=== PATIENT | female | born 2000 | race Caucasian/White ===

== ENCOUNTER 2021-06-29 18:29 | Emergency (ER) | payer OTHER ==
--- NOTE | 2021-06-29 18:37 | EDM.PDOC ---
ED HPI GENERAL MEDICAL PROBLEM - General Chief Complaint: Neurological Problem Stated Complaint: TROUBLE BREATHING, PASSED OUT Time Seen by Provider: 06/29/21 18:35 Source of Information: Reports: Patient, Family History Limitations: Reports: Altered Mental Status - History of Present Illness INITIAL COMMENTS - FREE TEXT/NARRATIVE: Alexa a 21-year-old female presenting to the ED for evaluation of difficulty breathing, delirium, and altered mental state. Patient was accompanying her father to look at [employer] in the area today and started to complain that she couldn't breathe. Her father said that she was gasping in the front seat. The patient requested that he call 911 to get brought into the hospital. Patient's father drove her immediately to the hospital. The patient has been exhibiting bizarre behavior between episodes of giddiness with inappropriate laughing followed by unresponsiveness followed by episodes that appear to be sure to her. These each last about 20 to 30 seconds. She denies any drug use, alcohol, or prescription drug use. She does have a history for passing out multiple times with the most recent being a week ago when she was in [place]. The patient reportedly took a couple hits of marijuana and was not feeling well and was going into a [employer] to get something to eat or drink when she had an episode and apparently fell striking her head on a pole. She has had a spotty headache since then but denies any vision changes, numbness or tingling, or problems with concentration or comprehension. Mom reports that the patient is just getting over a viral infection of some type and has not been sleeping well due to nausea over the last couple of nights. Patient does not have a fever or complain of chills. When she is alert she has no complaints. She denies any headache currently. She has been drinking water generously all day. - Related Data Allergies Allergy/AdvReac Type Severity Reaction Status Date / Time Penicillins Allergy Hives Verified 06/29/21 18:37 Home Meds: Home Meds NK [No Known Home Meds] 06/29/21 [History] ED ROS GENERAL - Review of Systems Review Of Systems: See Below Reason Not Obtained: Review of systems is limited due to the patient's altered mental Constitutional: Reports: Decreased Appetite HEENT: Reports: No Symptoms Respiratory: Reports: Shortness of Breath (Episodes of shortness of breath where the patient felt like she couldn't catch her breath. Dad states that she was not hyperventilating at the time. The shortness of breath resulted in her passin g out.) Cardiovascular: Reports: No Symptoms Endocrine: Reports: No Symptoms GI/Abdominal: Reports: Decreased Appetite, Nausea : Reports: No Symptoms Musculoskeletal: Reports: No Symptoms Skin: Reports: No Symptoms Neurological: Reports: Confusion Psychiatric: Reports: Agitation, Confusion Hematologic/Lymphatic: Reports: No Symptoms Immunologic: Reports: No Symptoms - Physical Exam Exam: See Below Exam Limited By: Altered Mental Status General Appearance: Alert, Anxious (Patient goes from being giddy and laughing inappropriately to being unresponsive briefly to having a look of terror upon arrival.), Lethargic (Patient goes in and out of consciousness.), Mild Distress Eye Exam: Bilateral Eye: EOMI, PERRL (Pupils are 4 mm and responsive to light) Ears: Normal External Exam Nose: Normal Inspection, Normal Mucosa Throat/Mouth: Normal Inspection, Normal Lips, Normal Oropharynx, Normal Voice, No Airway Compromise Head Exam: Atraumatic, Normocephalic Neck: Normal Inspection, Supple, Non-Tender, Full Range of Motion. No: Lymphadenopathy (R), Lymphadenopathy (L) Respiratory/Chest: No Respiratory Distress, Lungs Clear, Normal Breath Sounds Cardiovascular: Normal Peripheral Pulses, Regular Rate, Rhythm, No Murmur GI/Abdominal: Normal Bowel Sounds, Soft, Non-Tender Neuro Exam (Abbreviated): CN II-XII Intact, No Motor/Sensory Deficits, Disoriented (Cognition varies from being unresponsive to being confused to being disoriented to being alert.) Back Exam: Normal Inspection, Full Range of Motion Extremities: Normal Inspection, Normal Range of Motion, No Pedal Edema Psychiatric: Anxious Skin Exam: Warm, Dry, Intact, Normal Color Course - Vital Signs Last Recorded V/S: Last Vital Signs Temp 36.7 C 06/29/21 18:54 Pulse 83 06/29/21 18:54 Resp 16 06/29/21 18:54 BP 128/93 H 06/29/21 18:54 Pulse Ox 100 06/29/21 18:54 - Orders/Labs/Meds Labs: Laboratory Tests 06/29/21 06/29/21 06/29/21 Range/Units 18:45 18:46 18:46 WBC 7.3 (4.5-11.0) K/uL RBC 4.29 (3.30-5.50) M/uL Hgb 13.4 (12.0-15.0) g/dL Hct 37.6 (36.0-48.0) % MCV 88 (80-98) fL MCH 31 (27-31) pg MCHC 36 (32-36) % Plt Count 213 (150-400) K/uL Neut % (Auto) 58.6 (36-66) % Lymph % (Auto) 30.2 (24-44) % [place] % (Auto) 10.3 H (2-6) % Eos % (Auto) 0.8 L (2-4) % Baso % (Auto) 0.1 (0-1) % Sodium 140 (140-148) mmol/L Potassium 3.7 (3.6-5.2) mmol/L Chloride 104 (100-108) mmol/L Carbon Dioxide 25 (21-32) mmol/L Anion Gap 10.9 (5.0-14.0) mmol/L BUN 8 (7-18) mg/dL Creatinine 0.8 (0.6-1.0) mg/dL Est Cr Clr Drug Dosing 104.14 mL/min Estimated GFR (MDRD) > 60 (>60) Glucose 97 (74-106) mg/dL Calcium 8.6 (8.5-10.1) mg/dL Total Bilirubin 0.4 (0.2-1.0) mg/dL AST 15 (15-37) U/L ALT 16 (12-78) U/L Alkaline Phosphatase 58 (46-116) U/L Total Protein 6.7 (6.4-8.2) g/dL Albumin 3.8 (3.4-5.0) g/dL Globulin 2.9 (2.3-3.5) g/dL Albumin/Globulin Ratio 1.3 (1.2-2.2) TSH, Ultra Sensitive 0.997 (0.358-3.740) uIU/mL HCG, Qual Negative Urine Color (YELLOW) Urine Appearance (CLEAR) Urine pH (5.0-8.0) Ur Specific [place] (1.008-1.030) Urine Protein (NEGATIVE) mg/dL Urine Glucose (UA) (NEGATIVE) mg/dL Urine Ketones (NEGATIVE) mg/dL Urine Occult Blood (NEGATIVE) Urine Nitrite (NEGATIVE) Urine Bilirubin (NEGATIVE) Urine Urobilinogen (0.2-1.0) EU/dL Ur Leukocyte Esterase (NEGATIVE) Urine RBC (0-5) Urine WBC (0-5) Ur Epithelial Cells Amorphous Sediment Urine Bacteria Urine Mucus Urine Opiates Screen (NEGATIVE) Ur Oxycodone Screen (NEGATIVE) Urine Methadone Screen (NEGATIVE) Ur Propoxyphene Screen (NEGATIVE) Ur Barbiturates Screen (NEGATIVE) Ur Tricyclics Screen (NEGATIVE) Ur Phencyclidine Scrn (NEGATIVE) Ur Amphetamine Screen (NEGATIVE) U Methamphetamines Scrn (NEGATIVE) Urine MDMA Screen (NEGATIVE) U Benzodiazepines Scrn (NEGATIVE) U Cocaine Metab Screen (NEGATIVE) U Marijuana (THC) Screen (NEGATIVE) Ethyl Alcohol mg/dL 06/29/21 06/29/21 06/29/21 Range/Units 18:46 19:21 19:24 WBC (4.5-11.0) K/uL RBC (3.30-5.50) M/uL Hgb (12.0-15.0) g/dL Hct (36.0-48.0) % MCV (80-98) fL MCH (27-31) pg MCHC (32-36) % Plt Count (150-400) K/uL Neut % (Auto) (36-66) % Lymph % (Auto) (24-44) % [place] % (Auto) (2-6) % Eos % (Auto) (2-4) % Baso % (Auto) (0-1) % Sodium (140-148) mmol/L Potassium (3.6-5.2) mmol/L Chloride (100-108) mmol/L Carbon Dioxide (21-32) mmol/L Anion Gap (5.0-14.0) mmol/L BUN (7-18) mg/dL Creatinine (0.6-1.0) mg/dL Est Cr Clr Drug Dosing mL/min Estimated GFR (MDRD) (>60) Glucose (74-106) mg/dL Calcium (8.5-10.1) mg/dL Total Bilirubin (0.2-1.0) mg/dL AST (15-37) U/L ALT (12-78) U/L Alkaline Phosphatase (46-116) U/L Total Protein (6.4-8.2) g/dL Albumin (3.4-5.0) g/dL Globulin (2.3-3.5) g/dL Albumin/Globulin Ratio (1.2-2.2) TSH, Ultra Sensitive (0.358-3.740) uIU/mL HCG, Qual Urine Color Yellow (YELLOW) Urine Appearance Clear (CLEAR) Urine pH 7.0 (5.0-8.0) Ur Specific [place] 1.015 (1.008-1.030) Urine Protein Negative (NEGATIVE) mg/dL Urine Glucose (UA) Negative (NEGATIVE) mg/dL Urine Ketones Negative (NEGATIVE) mg/dL Urine Occult Blood Negative (NEGATIVE) Urine Nitrite Negative (NEGATIVE) Urine Bilirubin Negative (NEGATIVE) Urine Urobilinogen 0.2 (0.2-1.0) EU/dL Ur Leukocyte Esterase Negative (NEGATIVE) Urine RBC Not seen (0-5) Urine WBC Not seen (0-5) Ur Epithelial Cells Not seen Amorphous Sediment Rare Urine Bacteria Not seen Urine Mucus Not seen Urine Opiates Screen Negative (NEGATIVE) Ur Oxycodone Screen Negative (NEGATIVE) Urine Methadone Screen Negative (NEGATIVE) Ur Propoxyphene Screen Negative (NEGATIVE) Ur Barbiturates Screen Negative (NEGATIVE) Ur Tricyclics Screen Negative (NEGATIVE) Ur Phencyclidine Scrn Negative (NEGATIVE) Ur Amphetamine Screen Negative (NEGATIVE) U Methamphetamines Scrn Negative (NEGATIVE) Urine MDMA Screen Negative (NEGATIVE) U Benzodiazepines Scrn Negative (NEGATIVE) U Cocaine Metab Screen Negative (NEGATIVE) U Marijuana (THC) Screen Negative (NEGATIVE) Ethyl Alcohol < 3 mg/dL - Re-Assessments/Exams Free Text/Narrative Re-Assessment/Exam: 06/29/21 19:56 I reviewed the patient's labs showing a normal CBC, comprehensive metabolic profile, urinalysis, urine drug screen, TSH, and ethanol. I reviewed the patient's CT of the head showing no acute intracranial abnormalities including hemorrhage, mass, or midline shift. There appears to be normal parenchyma with collier-white ribbon differentiation. There appears be normal size ventricles for age. There is no cranial abnormalities. Trying to put together what may have occurred, I wonder if the patient did not have anxiety triggering hyperventilation syndrome resulting in her altered mental state due to hypocapnia. Unfortunately, we did not get an ABG when the patient arrived which may have shown this, however, the patient appears to be back to her baseline at this time. She has had multiple episodes of these occurring with syncope in the past. While here, there was no evidence for any electrical aberrancies on her hall monitor. Departure - Departure Time of Disposition: 20:03 Disposition: Home, Self-Care 01 Clinical Impression: Delirium, Hyperventilation syndrome, Panic attack - Discharge Information Instructions: Panic Attack, Hyperventilation Referrals: PCP,Unknown [Primary Care Provider] - Forms: ED Department Discharge Care Plan Goals: Your work-up today including your labs, scans, and examination suggest that this may have been an episode of hyperventilation syndrome likely initiated by a zoe c attack. Hyperventilation causes you to blow off excessive amounts of carbon dioxide which the brain does not like because it changes the acidity of the cerebral spinal fluid resulting in altered mentation, delirium, and passing out. Sepsis Event Note (ED) - Focused Exam Vital Signs: Vital Signs Temp Pulse Resp BP Pulse Ox 06/29/21 18:54 36.7 C 83 16 128/93 H 100 06/29/21 18:40 36.7 C 83 16 128/93 H 100 - Problem List & Annotations (1) Delirium SNOMED Code(s): 2488631 Code(s): R41.0 - DISORIENTATION, UNSPECIFIED Status: Acute Priority: High Current Visit: Yes (2) Hyperventilation syndrome SNOMED Code(s): 814713403 Code(s): F45.8 - OTHER SOMATOFORM DISORDERS Status: Acute Priority: High Current Visit: Yes (3) Panic attack SNOMED Code(s): 072149324 Code(s): F41.0 - PANIC DISORDER [EPISODIC PAROXYSMAL ANXIETY] Status: Acute Priority: High Current Visit: Yes - Problem List Review Problem List Initiated/Reviewed/Updated: Yes
--- NOTE | 2021-06-29 19:28 | CRLCT ---
For Patients: As a result of the Century Cures Act, medical imaging exams and procedure reports are released immediately into your electronic medical record. You may view this report before your referring provider. If you have questions, please contact your health care provider. INDICATION: delirium, head injury w/ LOC last week CT HEAD WITHOUT CONTRAST TECHNIQUE: Multiple axial CT images were performed through the head without intravenous contrast administration. COMPARISON: No previous studies are currently available for comparison. FINDINGS: No acute intracranial hemorrhage is identified. No extra-axial collections are evident and there is no mass effect or midline shift. Ventricles are normal in size and configuration. Brain parenchyma appears normal with unremarkable collier-white differentiation. Osseous structures are within normal limits and no fractures are seen. Included portions of the paranasal sinuses and mastoid air cells are normally aerated. IMPRESSION: Normal non-contrast head CT. DAVID MORA MD [facility] Please note that all CT scans at this facility use dose modulation, iterative reconstruction, and/or weight-based dosing when appropriate to reduce radiation dose to as low as reasonably achievable. Dictated by: Burak Mora MD @ 06/29/2021 19:26:20 (Electronically Signed)
== END 2021-06-29 20:43 | disposition home or self-care (01) ==
LOC: JP.ED 18:29
DX: F41.0 Panic disorder [episodic paroxysmal anxiety] (principal); F45.8 Other somatoform disorders; Z88.0 Allergy status to penicillin
CPT/HCPCS: 36415; 70450; 80053; 80305-QW; 80307; 81001; 84443; 84703; 85025; 99285-25